=== PATIENT | male | born 1970 | race Caucasian/White ===

== ENCOUNTER 2017-05-26 09:58 | Outpatient (CLI) | payer OTHER ==
[~2017-05-26 09:58] MED LIST: AVALIDE 150-12.1 TA1; AVANDAMET 4 MG/1 TA1; TRICOR145 MG
== END 2017-05-26 15:03 | disposition home or self-care (01) ==
LOC: NUCLEAR 09:58
DX: M86.8X7 Other osteomyelitis, ankle and foot (principal)
CPT/HCPCS: 78315; A9503; A9556; 78802